=== PATIENT | male | born 1960 | race Caucasian/White ===

== ENCOUNTER 2023-06-15 17:58 | Inpatient (IN) | payer MEDICAID, OTHER ==
[~2023-06-15] VITALS: Ht 177.8 cm; Wt 86.8 kg
[2023-06-15] MEDS ORDERED: LORazepam 2 MG TABLET PO ONE (23:00)
[2023-06-15] MEDS ORDERED: ACETAMINOPHEN 500 MG TABLET PO ONE (23:00)
[2023-06-15] MEDS ORDERED: DiphenhydrAMINE HCL 25 MG CAPSULE PO ONE (23:00)
[2023-06-15] MEDS ORDERED: HALOPERIDOL 5 MG TABLET PO ONE (23:00)
[2023-06-15 23:11] LABS: ANION GAP 7 mmol/L (8-16); CALCIUM, TOTAL 8.7 mg/dL (8.8-10.5); CARBON DIOXIDE 27 mmol/L (22-29); CHLORIDE 100 mmol/L (98-107); CREATININE 1.44 mg/dL (0.60-1.30); GLOMERULAR FILTR. RATE CALC 50 mL/min (>60); GLUCOSE,RANDOM 134 mg/dL (70-110); SODIUM SERUM 134 mmol/L (136-145); UREA NITROGEN, BLOOD 25 mg/dL (7-18)
[2023-06-15 23:12] LABS: BASOPHILS % (AUTO) 0.5 % (0.0-2.0); EOSINOPHILS % (AUTO) 5.2 % (1.0-6.0); HEMATOCRIT 33.9 % (41-53); HEMOGLOBIN 11.1 g/dL (13.5-17.5); LYMPHOCYTES # (AUTO) 0.4 K/uL (1.0-4.8); LYMPHOCYTES % (AUTO) 14.1 % (22.0-44.0); MEAN CORPUSCULAR HEMOGLOBIN 31.2 pg (26.0-34.0); MEAN CORPUSCULAR HGB CONC 32.9 G/dL (31.0-37.0); MEAN CORPUSCULAR VOLUME 95 fL (80-100); MONOCYTES # (AUTO) 0.4 K/uL (0.1-1.0); NEUTROPHILS % (AUTO) 67.2 % (40.0-70.0); RED BLOOD CELL COUNT(AUTO) 3.57 MIL/uL (4.50-5.90); RED CELL DISTRIBUTION WIDTH 15.8 % (11.5-14.5)
[2023-06-15 23:13] LABS: ALCOHOL, BLOOD (SERUM) < 3 mg/dL (0-10)
[2023-06-15 23:17] LABS: ALANINE AMINOTRANSFERASE 53 U/L (12-78); ALBUMIN 3.3 g/dL (3.4-5.0); ALKALINE PHOSPHATASE 203 U/L (46-116); ASPARTATE AMINOTRANSFERASE 64 U/L (15-37); BILIRUBIN,TOTAL 0.8 mg/dL (0.1-1.0); TOTAL PROTEIN, SERUM 6.8 g/dL (6.4-8.2)
[2023-06-15 23:29] LABS: COVID AG,FIA SOURCE NASOPHARYNGEAL
[2023-06-15 23:37] LABS: APPEARANCE,URINE CLEAR (CLEAR); BILIRUBIN,URINE NEGATIVE (NEGATIVE); COLOR,URINE YELLOW (YELLOW); GLUCOSE, URINE (UA) NEGATIVE (NEGATIVE); KETONES,URINE NEGATIVE (NEGATIVE); LEUKOCYTE ESTERASE ,URINE NEGATIVE (NEGATIVE); NITRATE,URINE NEGATIVE (NEGATIVE); OCCULT BLOOD,URINE NEGATIVE (NEGATIVE); PH,URINE 5.5 (5.0-8.0); PH,URINE DRUG SCREEN 5.5 (5.0-8.0); PROTEIN,URINE NEGATIVE (NEGATIVE); SPECIFIC GRAVITIY, URINE 1.021 (1.003-1.030); UROBILINOGEN,URINE <=1.0 mg/dL (<=1.0)
[2023-06-15 23:42] LABS: SARS-COV2 (COVID) ANTIGEN,FIA Negative (Negative)
[2023-06-15 23:44] LABS: PLATELET COUNT (AUTO) 52 K/uL (150-450)
[2023-06-15 23:49] LABS: ALCOHOL, URINE DRUG SCREEN NEGATIVE (NEGATIVE); AMPHET/METH SCREEN,URINE NEGATIVE (NEGATIVE); BARBITURATE SCREEN, URINE NEGATIVE (NEGATIVE); BENZODIAZEPINES SCREEN,URINE NEGATIVE (NEGATIVE); CANNABINOID SCREEN,URINE NEGATIVE (NEGATIVE); COCAINE SCREEN,URINE NEGATIVE (NEGATIVE); METHADONE SCREEN, URINE NEGATIVE (NEGATIVE); OPIATE SCREEN,URINE NEGATIVE (NEGATIVE); PHENCYCLIDINE SCREEN,URINE NEGATIVE (NEGATIVE)
[2023-06-16 03:16] VITALS: BP 121/82; PULSE 69; RESP 18; TEMP 97.8; O2SAT 96
[2023-06-16 08:46] VITALS: BP 116/66; PULSE 63; RESP 16; TEMP 97.9; O2SAT 97
[2023-06-16] MEDS ORDERED: ONDANSETRON HCL 4 MG TABLET PO PRN (11:00)
[2023-06-16] MEDS ORDERED: CloNIDine HCL 0.1 MG TABLET PO PRN (11:00)
[2023-06-16] MEDS ORDERED: NICOTINE 14 MG/24 HOUR PATCH TD PRN (11:00)
[2023-06-16] MEDS ORDERED: PETROLATUM,WHITE 28 GM JELLY TP PRN (11:00)
[2023-06-16] MEDS ORDERED: MAG HYDROX/AL HYDROX/SIMETH ES 30 ML SUSPENSION UDCUP PO PRN (11:00)
[2023-06-16] MEDS ORDERED: LOPERAMIDE HCL 2 MG CAPSULE PO PRN (11:00)
[2023-06-16] MEDS ORDERED: DOCUSATE SODIUM 100 MG CAPSULE PO PRN (11:00)
[2023-06-16] MEDS ORDERED: MAGNESIUM HYDROXIDE SUSPENSION 30 ML UDCUP PO PRN (11:00)
[2023-06-16 20:32] VITALS: BP 105/60; PULSE 70; RESP 17; TEMP 97.8; O2SAT 96
[2023-06-16 23:00] VITALS: BP 107/68; PULSE 76; RESP 18; TEMP 98; O2SAT 96
[2023-06-16] MEDS: ACETAMINOPHEN 325 MG TABLET PO PRN (23:02)
[2023-06-17 00:02] VITALS: RESP 18
[2023-06-17 08:01] LABS: HEMOGLOBIN A1C 5.9 % (3.8-5.6)
[2023-06-17 08:29] LABS: CHOL/HDL RATIO 2.9 (4.2-7.3); THYROID STIMULATING HORMONE 1.39 uIU/mL (0.36-3.74)
[2023-06-17] MEDS: CITALOPRAM HYDROBROMIDE 10 MG TABLET PO SCH (08:51)
[2023-06-17 10:23] VITALS: RESP 18; O2SAT 96
[2023-06-17] MEDS: ACETAMINOPHEN 325 MG TABLET PO PRN ×2 (10:23→21:12)
[2023-06-17 11:23] VITALS: RESP 17; O2SAT 96
[2023-06-17] MEDS: ALBUTEROL SULFATE HFA 90 MCG/PUFF 8 GM INHALER IH PRN (17:38)
[2023-06-17 20:13] VITALS: BP 105/60; PULSE 65; RESP 18; TEMP 97.8; O2SAT 97
[2023-06-17] MEDS: ZOLPIDEM TARTRATE 10 MG TABLET PO PRN (22:06)
[2023-06-18 08:31] VITALS: BP 114/59; PULSE 64; RESP 18; TEMP 97.7; O2SAT 97
[2023-06-18] MEDS: CITALOPRAM HYDROBROMIDE 10 MG TABLET PO SCH (08:31)
[2023-06-18] MEDS: ACETAMINOPHEN 325 MG TABLET PO PRN ×2 (10:12→20:48)
[2023-06-18 10:15] VITALS: RESP 18; O2SAT 97
[2023-06-18] MEDS: LORazepam 2 MG TABLET PO PRN (11:08)
[2023-06-18 11:15] VITALS: RESP 18; O2SAT 97
[2023-06-18 20:43] VITALS: BP 123/69; PULSE 68; RESP 18; TEMP 98; O2SAT 97
[2023-06-18] MEDS: ZOLPIDEM TARTRATE 10 MG TABLET PO PRN (20:48)
[2023-06-19] VITALS (7 sets, daily range): BP systolic 110–131; BP diastolic 58–69; PULSE 67–73; RESP 16–19; TEMP 97.8–98; O2SAT 95–96
[2023-06-19] MEDS: CITALOPRAM HYDROBROMIDE 10 MG TABLET PO SCH (09:21)
[2023-06-19] MEDS: ACETAMINOPHEN 325 MG TABLET PO PRN ×2 (11:30→20:23)
[2023-06-19] MEDS: LORazepam 2 MG TABLET PO PRN (18:10)
[2023-06-19] MEDS: ZOLPIDEM TARTRATE 10 MG TABLET PO PRN (20:23)
[2023-06-20 08:38] VITALS: BP 115/65; PULSE 69; RESP 17; TEMP 97.5; O2SAT 95
[2023-06-20] MEDS: CITALOPRAM HYDROBROMIDE 10 MG TABLET PO SCH (09:33)
[2023-06-20 12:13] VITALS: RESP 18; O2SAT 95
[2023-06-20] MEDS: ACETAMINOPHEN 325 MG TABLET PO PRN ×2 (12:13→21:40)
[2023-06-20 13:13] VITALS: RESP 17; O2SAT 95
[2023-06-20 21:20] VITALS: BP 119/74; PULSE 69; RESP 17; TEMP 98
[2023-06-20] MEDS: ZOLPIDEM TARTRATE 10 MG TABLET PO PRN (21:40)
[2023-06-21 06:08] VITALS: RESP 18
[2023-06-21] MEDS: ACETAMINOPHEN 325 MG TABLET PO PRN ×2 (06:22→23:09)
[2023-06-21 08:22] VITALS: BP 102/69; PULSE 62; RESP 18; TEMP 97.3; O2SAT 98
[2023-06-21] MEDS: CITALOPRAM HYDROBROMIDE 10 MG TABLET PO SCH (09:01)
[2023-06-21] MEDS: LORazepam 2 MG TABLET PO PRN ×2 (16:38→21:40)
[2023-06-21 20:35] VITALS: BP 108/62; PULSE 66; RESP 18; TEMP 98.4; O2SAT 95
[2023-06-21] MEDS: ZOLPIDEM TARTRATE 10 MG TABLET PO PRN (23:09)
[2023-06-21 23:12] VITALS: BP 118/72; PULSE 60; RESP 19; TEMP 97.9; O2SAT 98
[2023-06-22 08:44] VITALS: BP 116/68; PULSE 72; RESP 16; TEMP 98.8; O2SAT 98
[2023-06-22] MEDS: CITALOPRAM HYDROBROMIDE 10 MG TABLET PO SCH (09:59)
[2023-06-22] MEDS: LORazepam 2 MG TABLET PO PRN (10:34)
[2023-06-22 20:53] VITALS: BP 111/66; PULSE 60; RESP 17; TEMP 98; O2SAT 96
[2023-06-22] MEDS: ZOLPIDEM TARTRATE 10 MG TABLET PO PRN (21:16)
[2023-06-22] MEDS: ACETAMINOPHEN 325 MG TABLET PO PRN (21:23)
[2023-06-23] MEDS: LORazepam 2 MG TABLET PO PRN ×2 (02:51→12:36)
[2023-06-23 09:00] VITALS: BP 108/71; PULSE 77; RESP 18; TEMP 98; O2SAT 95
[2023-06-23] MEDS: CITALOPRAM HYDROBROMIDE 10 MG TABLET PO SCH (09:01)
[2023-06-23] MEDS: ACETAMINOPHEN 325 MG TABLET PO PRN (16:39)
[2023-06-23 20:00] VITALS: BP 111/66; PULSE 62; RESP 18; TEMP 97.8; O2SAT 95
[2023-06-23] MEDS: ZOLPIDEM TARTRATE 10 MG TABLET PO PRN (21:47)
[2023-06-24 03:18] VITALS: BP 109/60; PULSE 60; RESP 18; TEMP 97.7; O2SAT 98
[2023-06-24] MEDS: ACETAMINOPHEN 325 MG TABLET PO PRN ×2 (03:20→11:02)
[2023-06-24 04:20] VITALS: RESP 18
[2023-06-24 08:37] VITALS: BP 110/61; PULSE 60; RESP 18; TEMP 97.9; O2SAT 95
[2023-06-24] MEDS: LORazepam 2 MG TABLET PO PRN (08:50)
[2023-06-24] MEDS: CITALOPRAM HYDROBROMIDE 10 MG TABLET PO SCH (08:50)
[2023-06-24] MEDS: HALOPERIDOL 5 MG TABLET PO PRN (11:01)
[2023-06-24] MEDS: NYSTATIN 15 GM POWDER BOTTLE TP SCH (17:00)
[2023-06-24] MEDS: ZOLPIDEM TARTRATE 10 MG TABLET PO PRN (20:02)
[2023-06-24 21:21] VITALS: BP 123/75; PULSE 61; RESP 18; TEMP 97.8; O2SAT 95
[2023-06-25] MEDS: LORazepam 2 MG TABLET PO PRN ×2 (06:08→20:28)
[2023-06-25] MEDS: CITALOPRAM HYDROBROMIDE 10 MG TABLET PO SCH (08:43)
[2023-06-25] MEDS: NYSTATIN 15 GM POWDER BOTTLE TP SCH ×2 (08:48→17:02)
[2023-06-25 09:35] VITALS: BP 110/66; PULSE 58; RESP 18; TEMP 97.6; O2SAT 97
[2023-06-25 17:02] VITALS: RESP 18
[2023-06-25] MEDS: ACETAMINOPHEN 325 MG TABLET PO PRN (17:02)
[2023-06-25 18:02] VITALS: RESP 18
[2023-06-25 20:13] VITALS: BP 118/76; PULSE 60; RESP 18; TEMP 98.1; O2SAT 97
[2023-06-25] MEDS: ZOLPIDEM TARTRATE 10 MG TABLET PO PRN (21:58)
[2023-06-26] MEDS: LORazepam 2 MG TABLET PO PRN (04:37)
[2023-06-26 04:44] VITALS: BP 116/68; PULSE 63; RESP 18; TEMP 97.8; O2SAT 96
[2023-06-26 08:40] VITALS: BP 117/75; PULSE 64; RESP 17; TEMP 97.6; O2SAT 98
[2023-06-26] MEDS: CITALOPRAM HYDROBROMIDE 10 MG TABLET PO SCH (09:48)
[2023-06-26] MEDS: NYSTATIN 15 GM POWDER BOTTLE TP SCH ×2 (09:49→17:18)
[2023-06-26 13:07] VITALS: RESP 18; O2SAT 98
[2023-06-26] MEDS: ACETAMINOPHEN 325 MG TABLET PO PRN ×2 (13:07→20:01)
[2023-06-26 14:07] VITALS: RESP 17; O2SAT 98
[2023-06-26 20:02] VITALS: BP 118/69; PULSE 74; RESP 18; TEMP 98.2; O2SAT 98
[2023-06-26 21:01] VITALS: RESP 18
[2023-06-26] MEDS: ZOLPIDEM TARTRATE 10 MG TABLET PO PRN (22:37)
[2023-06-27 06:22] VITALS: BP 106/66; PULSE 63; RESP 17; TEMP 97.8
[2023-06-27] MEDS: ACETAMINOPHEN 325 MG TABLET PO PRN ×3 (06:30→20:54)
[2023-06-27 08:14] VITALS: BP 119/70; PULSE 60; RESP 18; TEMP 97.9; O2SAT 95
[2023-06-27] MEDS: NYSTATIN 15 GM POWDER BOTTLE TP SCH ×2 (09:00→16:33)
[2023-06-27] MEDS: CITALOPRAM HYDROBROMIDE 10 MG TABLET PO SCH (09:00)
[2023-06-27 13:02] VITALS: RESP 18; O2SAT 96
[2023-06-27 14:02] VITALS: RESP 18; O2SAT 95
[2023-06-27 20:10] VITALS: BP 116/70; PULSE 60; RESP 17; TEMP 98.2; O2SAT 95
[2023-06-27 20:54] VITALS: RESP 18
[2023-06-27] MEDS: ZOLPIDEM TARTRATE 10 MG TABLET PO PRN (21:46)
[2023-06-28 05:58] VITALS: BP 115/68; PULSE 63; RESP 18; TEMP 98
[2023-06-28] MEDS: ACETAMINOPHEN 325 MG TABLET PO PRN ×3 (05:58→23:22)
[2023-06-28 08:41] VITALS: BP 117/73; PULSE 72; RESP 17; TEMP 97.9; O2SAT 96
[2023-06-28] MEDS: CITALOPRAM HYDROBROMIDE 10 MG TABLET PO SCH (09:31)
[2023-06-28] MEDS: NYSTATIN 15 GM POWDER BOTTLE TP SCH ×2 (09:35→17:23)
[2023-06-28] MEDS: ZOLPIDEM TARTRATE 10 MG TABLET PO PRN (21:08)
[2023-06-28 22:21] VITALS: BP 111/61; PULSE 61; RESP 17; TEMP 98.3; O2SAT 60
[2023-06-29] MEDS: PANTOPRAZOLE SODIUM 40 MG DR TABLET PO SCH (06:52)
[2023-06-29] MEDS: NYSTATIN 15 GM POWDER BOTTLE TP SCH ×2 (08:40→16:36)
[2023-06-29] MEDS: CITALOPRAM HYDROBROMIDE 20 MG TABLET PO SCH (08:40)
[2023-06-29] MEDS: ACETAMINOPHEN 325 MG TABLET PO PRN ×2 (09:04→17:57)
[2023-06-29 09:05] VITALS: BP 112/58; PULSE 62; RESP 17; TEMP 97.7; O2SAT 97
[2023-06-29 17:50] VITALS: RESP 18
[2023-06-29 20:50] VITALS: BP 102/62; PULSE 69; RESP 18; TEMP 97.8
[2023-06-29] MEDS: ZOLPIDEM TARTRATE 10 MG TABLET PO PRN (20:58)
[2023-06-29] MEDS: IBUPROFEN 400 MG TABLET PO PRN (20:59)
[2023-06-30] MEDS: PANTOPRAZOLE SODIUM 40 MG DR TABLET PO SCH (06:27)
[2023-06-30 08:29] VITALS: BP 106/66; PULSE 64; RESP 16; TEMP 97.9; O2SAT 96
[2023-06-30] MEDS: CITALOPRAM HYDROBROMIDE 20 MG TABLET PO SCH (08:46)
[2023-06-30] MEDS: NYSTATIN 15 GM POWDER BOTTLE TP SCH ×2 (08:47→16:28)
[2023-06-30 21:11] VITALS: BP 110/56; PULSE 54; RESP 18; TEMP 97.9; O2SAT 100
[2023-06-30] MEDS: ACETAMINOPHEN 325 MG TABLET PO PRN (21:23)
[2023-06-30 21:29] VITALS: RESP 18
[2023-06-30] MEDS: ZOLPIDEM TARTRATE 10 MG TABLET PO PRN (21:33)
[2023-06-30 22:23] VITALS: RESP 18
[2023-07-01] VITALS (8 sets, daily range): BP systolic 127–131; BP diastolic 67–69; PULSE 60–63; RESP 17–19; TEMP 97.6–98; O2SAT 97–98
[2023-07-01] MEDS: PANTOPRAZOLE SODIUM 40 MG DR TABLET PO SCH (06:10)
[2023-07-01] MEDS: ACETAMINOPHEN 325 MG TABLET PO PRN ×2 (06:45→21:01)
[2023-07-01] MEDS: CITALOPRAM HYDROBROMIDE 20 MG TABLET PO SCH (09:53)
[2023-07-01] MEDS: NYSTATIN 15 GM POWDER BOTTLE TP SCH ×2 (09:54→17:14)
[2023-07-01] MEDS: LACTULOSE 20 GM/30 ML SOLUTION UDCUP PO PRN (10:03)
[2023-07-01] MEDS: IBUPROFEN 400 MG TABLET PO PRN (10:38)
[2023-07-01] MEDS: HALOPERIDOL 5 MG TABLET PO PRN (18:15)
[2023-07-01] MEDS: ZOLPIDEM TARTRATE 10 MG TABLET PO PRN (20:59)
[2023-07-02] MEDS: PANTOPRAZOLE SODIUM 40 MG DR TABLET PO SCH (06:34)
[2023-07-02] MEDS: ACETAMINOPHEN 325 MG TABLET PO PRN ×2 (06:34→14:06)
[2023-07-02 06:38] VITALS: RESP 18
[2023-07-02 07:23] VITALS: RESP 18
[2023-07-02] MEDS: CITALOPRAM HYDROBROMIDE 20 MG TABLET PO SCH (09:25)
[2023-07-02] MEDS: NYSTATIN 15 GM POWDER BOTTLE TP SCH ×2 (09:26→16:26)
[2023-07-02 09:44] VITALS: BP 108/60; PULSE 65; RESP 17; TEMP 98; O2SAT 97
[2023-07-02 14:06] VITALS: RESP 18; O2SAT 97
[2023-07-02 15:06] VITALS: RESP 17; O2SAT 97
[2023-07-02 20:28] VITALS: BP 145/80; PULSE 67; RESP 18; TEMP 97.6; O2SAT 97
[2023-07-03] MEDS: PANTOPRAZOLE SODIUM 40 MG DR TABLET PO SCH ×2 (06:30→06:35)
[2023-07-03 08:01] VITALS: BP 151/83; PULSE 81; RESP 18; TEMP 98.1; O2SAT 96
[2023-07-03 08:22] VITALS: BP 151/83; PULSE 81; RESP 18; TEMP 98.1; O2SAT 96
[2023-07-03] MEDS: CITALOPRAM HYDROBROMIDE 20 MG TABLET PO SCH (09:59)
[2023-07-03] MEDS: NYSTATIN 15 GM POWDER BOTTLE TP SCH ×2 (10:03→16:37)
[2023-07-03 14:32] VITALS: RESP 18; O2SAT 96
[2023-07-03] MEDS: ACETAMINOPHEN 325 MG TABLET PO PRN (14:32)
[2023-07-03 15:32] VITALS: RESP 18; O2SAT 96
[2023-07-03 16:27] VITALS: BP 130/70; PULSE 73; RESP 17; TEMP 98; O2SAT 96
[2023-07-03 20:27] VITALS: BP 130/70; PULSE 73; RESP 17; TEMP 98; O2SAT 96
[2023-07-04] VITALS (9 sets, daily range): BP systolic 126–132; BP diastolic 64–71; PULSE 65–71; RESP 17–18; TEMP 98.2–98.5; O2SAT 96–97
[2023-07-04] MEDS: ACETAMINOPHEN 325 MG TABLET PO PRN ×3 (01:31→21:16)
[2023-07-04] MEDS: PANTOPRAZOLE SODIUM 40 MG DR TABLET PO SCH (06:49)
[2023-07-04] MEDS: CITALOPRAM HYDROBROMIDE 20 MG TABLET PO SCH (08:50)
[2023-07-04] MEDS: NYSTATIN 15 GM POWDER BOTTLE TP SCH ×2 (09:44→16:52)
[2023-07-04] MEDS: IBUPROFEN 400 MG TABLET PO PRN (16:52)
[2023-07-04] MEDS: MELATONIN 5 MG TABLET PO PRN (21:16)
[2023-07-05] VITALS (7 sets, daily range): BP systolic 123–135; BP diastolic 67–74; PULSE 75–80; RESP 17–18; TEMP 97.6–97.9; O2SAT 92–98
[2023-07-05] MEDS: IBUPROFEN 400 MG TABLET PO PRN ×2 (03:29→22:33)
[2023-07-05] MEDS: PANTOPRAZOLE SODIUM 40 MG DR TABLET PO SCH (07:03)
[2023-07-05] MEDS: CITALOPRAM HYDROBROMIDE 20 MG TABLET PO SCH (09:22)
[2023-07-05] MEDS: NYSTATIN 15 GM POWDER BOTTLE TP SCH ×2 (09:23→16:35)
[2023-07-05] MEDS: ACETAMINOPHEN 325 MG TABLET PO PRN ×2 (14:18→20:56)
[2023-07-05] MEDS: MELATONIN 5 MG TABLET PO PRN (20:56)
[2023-07-06] MEDS: PANTOPRAZOLE SODIUM 40 MG DR TABLET PO SCH (06:15)
[2023-07-06] MEDS: IBUPROFEN 400 MG TABLET PO PRN ×2 (08:24→20:26)
[2023-07-06] MEDS: CITALOPRAM HYDROBROMIDE 20 MG TABLET PO SCH (08:24)
[2023-07-06] MEDS: NYSTATIN 15 GM POWDER BOTTLE TP SCH ×2 (08:32→16:11)
[2023-07-06 08:41] VITALS: BP 136/78; PULSE 59; RESP 18; TEMP 97.6; O2SAT 96
[2023-07-06] MEDS: TraZODone HCL 50 MG TABLET PO SCH (20:17)
[2023-07-06 20:32] VITALS: BP 134/87; PULSE 61; RESP 19; TEMP 98.1; O2SAT 100
[2023-07-06 23:33] VITALS: BP 144/79; PULSE 61; RESP 19; TEMP 97.8; O2SAT 100
[2023-07-06] MEDS: ACETAMINOPHEN 325 MG TABLET PO PRN (23:41)
[2023-07-07] MEDS: PANTOPRAZOLE SODIUM 40 MG DR TABLET PO SCH (05:55)
[2023-07-07] MEDS: NYSTATIN 15 GM POWDER BOTTLE TP SCH ×2 (08:14→17:04)
[2023-07-07] MEDS: LACTULOSE 20 GM/30 ML SOLUTION UDCUP PO PRN (08:14)
[2023-07-07] MEDS: CITALOPRAM HYDROBROMIDE 20 MG TABLET PO SCH (08:15)
[2023-07-07 08:52] VITALS: BP 140/82; PULSE 76; RESP 20; TEMP 98; O2SAT 100
[2023-07-07] MEDS: ACETAMINOPHEN 325 MG TABLET PO PRN (19:40)
[2023-07-07 20:01] VITALS: BP 133/80; PULSE 81; RESP 17; TEMP 97.7; O2SAT 98
[2023-07-07] MEDS: TraZODone HCL 50 MG TABLET PO SCH (20:31)
[2023-07-07] MEDS: ALBUTEROL SULFATE HFA 90 MCG/PUFF 8 GM INHALER IH PRN (20:35)
[2023-07-08 04:55] VITALS: BP 116/71; PULSE 77; RESP 17; TEMP 97.8
[2023-07-08] MEDS: GuaiFENesin/D-METHORPHAN [SUGAR-FREE] 200-20MG/10 ML SYRUP UDCUP PO PRN ×3 (05:00→22:01)
[2023-07-08] MEDS: IBUPROFEN 400 MG TABLET PO PRN (05:00)
[2023-07-08] MEDS: PANTOPRAZOLE SODIUM 40 MG DR TABLET PO SCH (07:01)
[2023-07-08] MEDS: CITALOPRAM HYDROBROMIDE 20 MG TABLET PO SCH (08:25)
[2023-07-08 08:43] VITALS: BP 132/75; PULSE 76; RESP 18; TEMP 97.8; O2SAT 97
[2023-07-08] MEDS: NYSTATIN 15 GM POWDER BOTTLE TP SCH ×2 (09:06→17:14)
[2023-07-08 18:08] VITALS: RESP 18; O2SAT 97
[2023-07-08] MEDS: ACETAMINOPHEN 325 MG TABLET PO PRN (18:08)
[2023-07-08 19:08] VITALS: RESP 18; O2SAT 97
[2023-07-08] MEDS: TraZODone HCL 50 MG TABLET PO SCH (20:50)
[2023-07-08] MEDS: ALBUTEROL SULFATE HFA 90 MCG/PUFF 8 GM INHALER IH PRN (22:01)
[2023-07-08 23:57] VITALS: BP 133/72; PULSE 64; RESP 17; TEMP 97.8; O2SAT 98
[2023-07-09] MEDS: IBUPROFEN 400 MG TABLET PO PRN (04:15)
[2023-07-09] MEDS: PANTOPRAZOLE SODIUM 40 MG DR TABLET PO SCH (06:36)
[2023-07-09] MEDS: CITALOPRAM HYDROBROMIDE 20 MG TABLET PO SCH (08:17)
[2023-07-09] MEDS: NYSTATIN 15 GM POWDER BOTTLE TP SCH ×2 (08:18→17:04)
[2023-07-09 09:46] VITALS: BP 138/67; PULSE 63; RESP 16; TEMP 97.2; O2SAT 95
[2023-07-09 19:16] LABS: GLUCOMETER DEV NAME(LOC) POC.BV; POC SARS-COV2 AG, FIA NEGATIVE (NEGATIVE)
[2023-07-09] MEDS: TraZODone HCL 50 MG TABLET PO SCH (20:05)
[2023-07-09] MEDS: GuaiFENesin/D-METHORPHAN [SUGAR-FREE] 200-20MG/10 ML SYRUP UDCUP PO PRN (20:10)
[2023-07-09 20:13] VITALS: BP 124/68; PULSE 69; RESP 18; TEMP 98.2; O2SAT 96
[2023-07-10] MEDS: PANTOPRAZOLE SODIUM 40 MG DR TABLET PO SCH (06:09)
[2023-07-10] MEDS: NYSTATIN 15 GM POWDER BOTTLE TP SCH ×2 (09:10→16:00)
[2023-07-10] MEDS: CITALOPRAM HYDROBROMIDE 20 MG TABLET PO SCH (09:11)
[2023-07-10] MEDS: GuaiFENesin/D-METHORPHAN [SUGAR-FREE] 200-20MG/10 ML SYRUP UDCUP PO PRN ×2 (09:15→20:44)
[2023-07-10 10:35] VITALS: BP 133/77; PULSE 71; RESP 18; TEMP 97.6; O2SAT 98
[2023-07-10] MEDS: ACETAMINOPHEN 325 MG TABLET PO PRN ×2 (10:37→20:46)
[2023-07-10 11:37] VITALS: RESP 18; O2SAT 98
[2023-07-10 15:50] VITALS: RESP 18
[2023-07-10] MEDS: IBUPROFEN 400 MG TABLET PO PRN (16:00)
[2023-07-10 20:30] VITALS: BP 133/78; PULSE 77; RESP 18; TEMP 97.9
[2023-07-10] MEDS: TraZODone HCL 50 MG TABLET PO SCH (20:46)
[2023-07-11] MEDS: GuaiFENesin/D-METHORPHAN [SUGAR-FREE] 200-20MG/10 ML SYRUP UDCUP PO PRN ×2 (06:35→21:07)
[2023-07-11] MEDS: PANTOPRAZOLE SODIUM 40 MG DR TABLET PO SCH (06:35)
[2023-07-11 08:09] VITALS: BP 128/72; PULSE 64; RESP 17; TEMP 98.6; O2SAT 97
[2023-07-11] MEDS: CITALOPRAM HYDROBROMIDE 20 MG TABLET PO SCH (08:25)
[2023-07-11] MEDS: ASPIRIN 81 MG CHEWABLE TABLET PO SCH (08:25)
[2023-07-11] MEDS: NYSTATIN 15 GM POWDER BOTTLE TP SCH ×2 (08:27→16:31)
[2023-07-11] MEDS: TAMSULOSIN HCL 0.4 MG CAPSULE PO SCH (08:29)
[2023-07-11] MEDS: IBUPROFEN 400 MG TABLET PO PRN (12:30)
[2023-07-11 20:09] VITALS: BP 120/73; PULSE 67; RESP 20; TEMP 98.2; O2SAT 100
[2023-07-11] MEDS: TraZODone HCL 50 MG TABLET PO SCH (20:25)
[2023-07-11 20:26] VITALS: RESP 20
[2023-07-11] MEDS: ALBUTEROL SULFATE HFA 90 MCG/PUFF 8 GM INHALER IH PRN (20:26)
[2023-07-11] MEDS: ACETAMINOPHEN 325 MG TABLET PO PRN (20:26)
[2023-07-11 21:31] VITALS: RESP 18
[2023-07-12 03:17] VITALS: RESP 18
[2023-07-12] MEDS: GuaiFENesin/D-METHORPHAN [SUGAR-FREE] 200-20MG/10 ML SYRUP UDCUP PO PRN ×3 (03:31→21:09)
[2023-07-12] MEDS: ACETAMINOPHEN 325 MG TABLET PO PRN ×2 (03:32→21:09)
[2023-07-12] MEDS: PANTOPRAZOLE SODIUM 40 MG DR TABLET PO SCH (06:04)
[2023-07-12] MEDS: NYSTATIN 15 GM POWDER BOTTLE TP SCH ×2 (08:07→16:14)
[2023-07-12] MEDS: CITALOPRAM HYDROBROMIDE 20 MG TABLET PO SCH (08:08)
[2023-07-12] MEDS: ASPIRIN 81 MG CHEWABLE TABLET PO SCH (08:08)
[2023-07-12] MEDS: TAMSULOSIN HCL 0.4 MG CAPSULE PO SCH (08:09)
[2023-07-12] MEDS: IBUPROFEN 400 MG TABLET PO PRN (09:44)
[2023-07-12 13:27] VITALS: BP 127/77; PULSE 70; RESP 17; TEMP 96
[2023-07-12 20:06] VITALS: BP 129/69; PULSE 66; RESP 18; TEMP 97.6; O2SAT 97
[2023-07-12 21:08] VITALS: RESP 18
[2023-07-12] MEDS: TraZODone HCL 50 MG TABLET PO SCH (21:09)
[2023-07-12] MEDS: ALBUTEROL SULFATE HFA 90 MCG/PUFF 8 GM INHALER IH PRN (21:10)
[2023-07-13 06:15] VITALS: RESP 18
[2023-07-13] MEDS: PANTOPRAZOLE SODIUM 40 MG DR TABLET PO SCH (06:20)
[2023-07-13] MEDS: IBUPROFEN 400 MG TABLET PO PRN (06:20)
[2023-07-13] MEDS ORDERED: TAMS0.4C34 PO (08:02)
[2023-07-13] MEDS ORDERED: PANT-31 PO ×2 (08:03→10:34)
[2023-07-13] MEDS ORDERED: ASPI81TA39 PO (08:03)
[2023-07-13] MEDS ORDERED: CITA-144 PO ×2 (08:04→10:34)
[2023-07-13] MEDS ORDERED: TRAZ-252 PO ×3 (08:05→10:34)
[2023-07-13 08:12] LABS: BASOPHILS % (AUTO) 0.1 % (0.0-2.0); EOSINOPHILS % (AUTO) 6.6 % (1.0-6.0); HEMATOCRIT 33.1 % (41-53); LYMPHOCYTES # (AUTO) 0.4 K/uL (1.0-4.8); LYMPHOCYTES % (AUTO) 18.5 % (22.0-44.0); MEAN CORPUSCULAR HGB CONC 33.4 G/dL (31.0-37.0); MEAN CORPUSCULAR VOLUME 96 fL (80-100); MONOCYTES # (AUTO) 0.2 K/uL (0.1-1.0); MONOCYTES % (AUTO) 8.7 % (2.0-9.0); NEUTROPHILS # (AUTO) 1.4 K/uL (1.8-7.7); NEUTROPHILS % (AUTO) 66.1 % (40.0-70.0); RED BLOOD CELL COUNT(AUTO) 3.45 MIL/uL (4.50-5.90); RED CELL DISTRIBUTION WIDTH 15.5 % (11.5-14.5); WHITE BLOOD COUNT (AUTO) 2.1 K/uL (4.5-11.0)
[2023-07-13] MEDS: ASPIRIN 81 MG CHEWABLE TABLET PO SCH (08:27)
[2023-07-13] MEDS: TAMSULOSIN HCL 0.4 MG CAPSULE PO SCH (08:27)
[2023-07-13] MEDS: CITALOPRAM HYDROBROMIDE 20 MG TABLET PO SCH (08:27)
[2023-07-13 08:29] LABS: HEMOGLOBIN A1C 5.8 % (3.8-5.6)
[2023-07-13] MEDS: NYSTATIN 15 GM POWDER BOTTLE TP SCH (08:31)
[2023-07-13 08:37] LABS: ALANINE AMINOTRANSFERASE 52 U/L (12-78); ALBUMIN 3.2 g/dL (3.4-5.0); ALKALINE PHOSPHATASE 175 U/L (46-116); ANION GAP 6 mmol/L (8-16); ASPARTATE AMINOTRANSFERASE 57 U/L (15-37); BILIRUBIN,TOTAL 0.7 mg/dL (0.1-1.0); CARBON DIOXIDE 27 mmol/L (22-29); CHLORIDE 109 mmol/L (98-107); CREATININE 1.09 mg/dL (0.60-1.30); GLOMERULAR FILTR. RATE CALC > 60 mL/min (>60); GLUCOSE,RANDOM 105 mg/dL (70-110); POTASSIUM 4.4 mmol/L (3.5-5.1); SODIUM SERUM 142 mmol/L (136-145); TOTAL PROTEIN, SERUM 6.5 g/dL (6.4-8.2); UREA NITROGEN, BLOOD 23 mg/dL (7-18)
[2023-07-13 09:07] LABS: PLATELET COUNT (AUTO) 49 K/uL (150-450)
[2023-07-13] MEDS ORDERED: TAMS-1 PO (10:34)
[2023-07-13] MEDS ORDERED: ASPI81 PO (10:34)
== END 2023-07-13 08:30 | disposition home or self-care (01) | DRG 751 ==
LOC: EMS 18:00 → B2S 06-16 01:26
PROVIDERS: ADMIT Psychiatry & Neurology Psychiatry; ATTEND Psychiatry & Neurology Psychiatry
DX: F33.2 Major depressive disorder, recurrent severe without psychotic features (principal); D61.818 Other pancytopenia; N17.9 Acute kidney failure, unspecified; R45.851 Suicidal ideations; F22 Delusional disorders; Z20.822 Contact with and (suspected) exposure to COVID-19; J45.909 Unspecified asthma, uncomplicated; R73.9 Hyperglycemia, unspecified; F41.9 Anxiety disorder, unspecified; Z59.00 Homelessness unspecified; Z91.013 Allergy to seafood; Z88.0 Allergy status to penicillin; Z79.899 Other long term (current) drug therapy
CPT/HCPCS: 80053; 80061; 80307; 81003; 83036; 84443; 85025; 87081; 99285; G0480; J3535; Q9967

== ENCOUNTER 2023-07-25 20:12 | Inpatient (IN) | payer MEDICAID ==
[~2023-07-25] VITALS: Ht 177.8 cm; Wt 84.1 kg
[~2023-07-25 20:12] MED LIST: ASPI81 PO; ASPI81TA39 PO; CITA-144 PO; PANT-31 PO; TAMS-1 PO; TAMS0.4C94 PO; TRAZ-252 PO
[2023-07-25] MEDS ORDERED: HALOPERIDOL 5 MG TABLET PO PRN (21:00)
[2023-07-25] MEDS ORDERED: PNEUMOCOCCAL VACCINE POLYVALENT 0.5 ML SYRINGE [PPSV23] IM. ONE (22:45)
[2023-07-25] MEDS ORDERED: INFLUENZA VIRUS VACCINE QVS 2023-24 (6MO+)/PF 60 MCG/0.5 ML SYRINGE IM. ONE (22:45)
[2023-07-25] MEDS: ZOLPIDEM TARTRATE 10 MG TABLET PO PRN (22:54)
[2023-07-25 22:56] LABS: GLUCOMETER DEV NAME(LOC) BV2S.; GLUCOSE,POINT OF CARE 120 MG/DL (70-110)
[2023-07-25 23:12] VITALS: BP 131/69; PULSE 68; RESP 18; TEMP 97.2
[2023-07-26] MEDS ORDERED: ALBUTEROL SULFATE HFA 90 MCG/PUFF 8 GM INHALER IH PRN ×2 (07:00→16:15)
[2023-07-26 08:15] VITALS: BP 132/85; PULSE 84; RESP 18; TEMP 97.9; O2SAT 96
[2023-07-26 08:15] LABS: HEMOGLOBIN A1C 5.5 % (3.8-5.6)
[2023-07-26 08:36] LABS: CHOL/HDL RATIO 2.9 (4.2-7.3); FREE T4 (FREE THYROXINE) 0.94 ng/dL (0.76-1.46); THYROID STIMULATING HORMONE 2.13 uIU/mL (0.36-3.74)
[2023-07-26] MEDS: ASPIRIN 81 MG CHEWABLE TABLET PO SCH (09:03)
[2023-07-26] MEDS: TAMSULOSIN HCL 0.4 MG CAPSULE PO SCH (09:03)
[2023-07-26] MEDS ORDERED: LACTULOSE 20 GM/30 ML SOLUTION UDCUP PO PRN (13:00)
[2023-07-26] MEDS: LORazepam 2 MG TABLET PO PRN (15:45)
[2023-07-26] MEDS ORDERED: DOCUSATE SODIUM 100 MG CAPSULE PO PRN (16:15)
[2023-07-26] MEDS ORDERED: LOPERAMIDE HCL 2 MG CAPSULE PO PRN (16:15)
[2023-07-26] MEDS ORDERED: MAGNESIUM HYDROXIDE SUSPENSION 30 ML UDCUP PO PRN (16:15)
[2023-07-26] MEDS ORDERED: GuaiFENesin/D-METHORPHAN [SUGAR-FREE] 200-20MG/10 ML SYRUP UDCUP PO PRN (16:15)
[2023-07-26] MEDS ORDERED: IBUPROFEN 400 MG TABLET PO PRN (16:15)
[2023-07-26] MEDS ORDERED: NICOTINE 14 MG/24 HOUR PATCH TD PRN (16:15)
[2023-07-26] MEDS ORDERED: CloNIDine HCL 0.1 MG TABLET PO PRN (16:15)
[2023-07-26] MEDS ORDERED: PETROLATUM,WHITE 28 GM JELLY TP PRN (16:15)
[2023-07-26] MEDS ORDERED: MAG HYDROX/ALUMINUM HYD/SIMETH ES 30 ML SUSPENSION UDCUP PO PRN (16:15)
[2023-07-26] MEDS ORDERED: ONDANSETRON HCL 4 MG TABLET PO PRN (16:15)
[2023-07-26] MEDS ORDERED: ACETAMINOPHEN 325 MG TABLET PO PRN (16:15)
[2023-07-26 20:17] VITALS: BP 136/62; PULSE 69; RESP 18; TEMP 98.2; O2SAT 97
[2023-07-26 20:26] VITALS: RESP 17
[2023-07-26] MEDS: TraZODone HCL 50 MG TABLET PO SCH (20:30)
[2023-07-26] MEDS: ZOLPIDEM TARTRATE 10 MG TABLET PO PRN (20:59)
[2023-07-26 21:26] VITALS: RESP 18
[2023-07-27] MEDS: PANTOPRAZOLE SODIUM 40 MG DR TABLET PO SCH (06:40)
[2023-07-27 08:19] VITALS: BP 125/70; PULSE 86; RESP 17; TEMP 97.8
[2023-07-27] MEDS: TAMSULOSIN HCL 0.4 MG CAPSULE PO SCH (08:22)
[2023-07-27] MEDS: ASPIRIN 81 MG CHEWABLE TABLET PO SCH (08:22)
[2023-07-27] MEDS: CITALOPRAM HYDROBROMIDE 20 MG TABLET PO SCH (08:22)
[2023-07-27 08:33] LABS: HEMOGLOBIN A1C 5.8 % (3.8-5.6)
[2023-07-27 08:46] LABS: CHOL/HDL RATIO 2.9 (4.2-7.3)
[2023-07-27 09:37] LABS: THYROID STIMULATING HORMONE 1.4 uIU/mL (0.36-3.74)
[2023-07-27] MEDS: LORazepam 2 MG TABLET PO PRN (18:05)
[2023-07-27 20:10] VITALS: BP 124/75; PULSE 68; RESP 20; TEMP 97.7; O2SAT 98
[2023-07-27] MEDS: TraZODone HCL 50 MG TABLET PO SCH (20:52)
[2023-07-28] MEDS: PANTOPRAZOLE SODIUM 40 MG DR TABLET PO SCH (06:37)
[2023-07-28] MEDS: ASPIRIN 81 MG CHEWABLE TABLET PO SCH (08:19)
[2023-07-28] MEDS: CITALOPRAM HYDROBROMIDE 20 MG TABLET PO SCH (08:19)
[2023-07-28] MEDS: TAMSULOSIN HCL 0.4 MG CAPSULE PO SCH (08:21)
[2023-07-28 08:44] VITALS: BP 137/74; PULSE 89; RESP 17; TEMP 98.4; O2SAT 97
[2023-07-29] MEDS ORDERED: CITA-144 PO (13:06)
[2023-07-29] MEDS ORDERED: TRAZ-252 PO (13:06)
== END 2023-07-28 12:26 | disposition home or self-care (01) | DRG 754 ==
LOC: B2S 21:55 → MERGE 21:55
PROVIDERS: ADMIT Psychiatry & Neurology Psychiatry; ATTEND Psychiatry & Neurology Psychiatry
DX: F32.9 Major depressive disorder, single episode, unspecified (principal); R45.851 Suicidal ideations; E78.5 Hyperlipidemia, unspecified; I10 Essential (primary) hypertension; J44.9 Chronic obstructive pulmonary disease, unspecified; N40.0 Benign prostatic hyperplasia without lower urinary tract symptoms; F10.10 Alcohol abuse, uncomplicated; G47.00 Insomnia, unspecified; K59.00 Constipation, unspecified; F41.9 Anxiety disorder, unspecified; Z72.0 Tobacco use
CPT/HCPCS: 80061; 82962; 83036; 84439; 84443; J3535